=== PATIENT | female | born 1990 | race Caucasian/White ===

== ENCOUNTER → 2020-09-28 20:24 | Observation (INO) | END | disposition home or self-care (01) | LOC: 1NENULAB | PROVIDERS: ADMIT Advanced Practice Midwife; ATTEND Advanced Practice Midwife ==

== ENCOUNTER → 2020-09-29 20:41 | Observation (INO) ==
[~2020-09-29 20:41] MED LIST: *HR* Nalbuphine 10 MG/ML AMPUL IM STA; *HR* Promethazine 25 MG/ML VIAL IM ONE
== END | disposition home or self-care (01) ==
LOC: 1NENULAB
PROVIDERS: ADMIT Advanced Practice Midwife; ATTEND Advanced Practice Midwife

== ENCOUNTER 2020-09-30 18:55 | Inpatient (IN) ==
[~2020-09-30 18:55] MED LIST changes: -*HR* Nalbuphine 10 MG/ML AMPUL IM STA; +*HR* Nalbuphine 10 MG/ML AMPUL IV PRN; -*HR* Promethazine 25 MG/ML VIAL IM ONE; +Famotidine 20 MG/2 ML VIAL IVP PRN; +Lidocaine 1% 20 ML MDV INFILT PRN; +Metoclopramide 10 MG/2 ML VIAL IVP PRN; +Naloxone 0.4 MG/ML INJ IVP PRN
[2020-09-30 19:08] LABS: Basophils % 0.3 %; Eosinophils # 0.1 K/mcL (0.0-0.6); Eosinophils % 0.9 %; Hematocrit 38.9 % (35.3-44.9); Hemoglobin 12.6 g/dL (11.5-15.4); Immature Granulocytes % 0.9 % (0-4); Lymphocytes # 2.4 K/mcL (0.6-4.6); Lymphocytes % 21.1 %; Mean Corpuscular HGB Conc 32.4 g/dL (31.6-35.5); Mean Corpuscular Hemoglobin 29.3 pg (28.0-33.3); Mean Corpuscular Volume 90.5 fL (83.0-100.0); Mean Platelet Volume 11.1 fL (9.4-12.4); Monocytes # 1.1 K/mcL (0.0-1.3); Neutrophils # 7.7 K/mcL (1.6-8.9); Platelet Count 225 K/mcL (140-400); Red Cell Distribution Width 13.2 % (11.5-14.5); Segmented Neutrophils % 66.8 %; White Blood Count 11.4 K/mcL (4.3-11.1)
[2020-09-30 19:20] LABS: Amphetamine Screen,Urine Negative ng/mL (Cutoff=1000); Barbiturate Screen,Urine Negative ng/mL (Cutoff=200); Benzodiazepines Screen,Urine Negative ng/mL (Cutoff=200); Cannabinoid Screen,Urine Negative ng/mL (Cutoff = 50); Cocaine Screen,Urine Negative ng/mL (Cutoff= 300); Opiate Screen,Urine Negative ng/mL (Cutoff=300); Phencyclidine Screen,Urine Negative ng/mL (Cutoff=25)
[2020-09-30] MEDS ORDERED: Ropivacaine/PF 0.2% 20 ML VIAL EP ONE (22:58)
[2020-09-30] MEDS ORDERED: EPHEDrine 50 MG/ML VIAL IVP PRN (22:58)
[2020-09-30] MEDS ORDERED: Epidural Premix (fent/bupiv) 110 ML EP SCH (23:00)
[2020-10-01] MEDS: Ringers Solution, Lactated 1,000 ML IVC SCH ×2 (01:59→05:16)
[2020-10-01] MEDS ORDERED: Oxytocin 20 units/ LR 1000 mL 20 UNIT/1,000 ML BAG IVC SCH ×2 (02:15→12:55)
[2020-10-01] MEDS ORDERED: Benzocaine/Menthol 56 GM AEROSOL SPRAY TP PRN (12:55)
[2020-10-01] MEDS ORDERED: Oxytocin 20 units/ LR 1000 mL 20 UNIT/1,000 ML BAG IVC ONE (12:55)
[2020-10-01] MEDS ORDERED: Rho Immune Globulin 1,500 UNIT SYRINGE IM PRN (12:55)
[2020-10-01] MEDS ORDERED: Measles/Mumps/Rubella Vacc 0.5 ML VIAL SQ PRN (12:55)
[2020-10-01] MEDS ORDERED: Acetaminophen 325 MG TABLET PO PRN (12:55)
[2020-10-01] MEDS: Ibuprofen 600 MG TABLET PO PRN ×2 (13:28→19:50)
[2020-10-02] MEDS: Ibuprofen 600 MG TABLET PO PRN (06:18)
[2020-10-02 06:23] VITALS: O2SAT 99
[2020-10-02 07:53] VITALS: BP 111/76; PULSE 96; TEMP 98.2
[2020-10-02] MEDS ORDERED: Prenatal Vit/FA 1 EACH TABLET PO SCH (09:00)
[2020-10-02 09:44] LABS: Basophils # 0.1 K/mcL (0.0-0.2); Basophils % 0.4 %; Eosinophils # 0.2 K/mcL (0.0-0.6); Eosinophils % 1.5 %; Hematocrit 33.5 % (35.3-44.9); Immature Granulocytes % 0.7 % (0-4); Lymphocytes # 2.2 K/mcL (0.6-4.6); Lymphocytes % 17.5 %; Mean Corpuscular HGB Conc 32.8 g/dL (31.6-35.5); Mean Corpuscular Hemoglobin 29.7 pg (28.0-33.3); Mean Corpuscular Volume 90.5 fL (83.0-100.0); Mean Platelet Volume 11.4 fL (9.4-12.4); Monocytes # 0.8 K/mcL (0.0-1.3); Monocytes % 6.6 %; Neutrophils # 9.1 K/mcL (1.6-8.9); Platelet Count 217 K/mcL (140-400); Red Cell Distribution Width 13.1 % (11.5-14.5); Segmented Neutrophils % 73.3 %; White Blood Count 12.3 K/mcL (4.3-11.1)
== END 2020-10-02 13:03 | disposition home or self-care (01) | DRG 807 ==
LOC: 1NENULAB → 1NENUOBS 10-01 14:54
PROVIDERS: ADMIT Registered Nurse; ATTEND Registered Nurse